=== PATIENT | female | born 1990 | race Caucasian/White ===

== ENCOUNTER 2019-02-04 15:57 | Emergency (ER) | payer OTHER ==
[2019-02-04] MEDS: ONDANSETRON 4 MG INJ IV (18:15)
[2019-02-04] MEDS: morphine 4 MG/ML VIAL IV (18:15)
[2019-02-04] MEDS: SOD CHLORIDE 0.9% 1,000 ML IV (18:15)
[2019-02-04 18:37] LABS: ADD MAN DIFF? NO
[2019-02-04 18:49] LABS: ADD UMIC YES; UR ASCORBIC ACID NEGATIVE (NEGATIVE); UR BILIRUBIN (Dip) NEGATIVE (NEGATIVE); UR BLOOD (Dip) 3+ mg/dL (NEGATIVE); UR CLARITY CLEAR (CLEAR); UR COLOR COLORLESS (YELLOW); UR GLUCOSE (Dip) NEGATIVE (NEGATIVE); UR KETONES (Dip) NEGATIVE (NEGATIVE); UR LEUKOCYTE ESTERASE (Dip) NEGATIVE Leu/ul (NEGATIVE); UR NITRITE (Dip) NEGATIVE (NEGATIVE); UR RBC 0 /HPF (0-5); UR SPECIFIC GRAVITY (Dip) 1.003 (1.003-1.030); UR SQUAMOUS EPITHELIAL CELL FEW /HPF (FEW); UR TOTAL PROTEIN (Dip) NEGATIVE (NEGATIVE); UR UROBILINOGEN (Dip) NEGATIVE (NEGATIVE); UR WBC 2 /HPF (0-5)
[2019-02-04 18:51] LABS: BASOPHIL # 0.1 10^3/ul (0.0-0.1); BASOPHILS % 0.4 % (0.0-2.0); EOSINOPHILS # 0.1 10^3/ul (0.0-0.5); EOSINOPHILS % 0.4 % (0.0-7.0); HEMATOCRIT 42.7 % (37.0-47.0); HEMOGLOBIN 14.3 g/dl (12.0-16.0); LYMPHOCYTES # 3.1 10^3/ul (0.8-2.9); LYMPHOCYTES % 20.9 % (15.0-51.0); MEAN CORPUSCULAR HEMOGLOBIN 27.7 pg (29.0-33.0); MEAN CORPUSCULAR HGB CONC 33.5 g/dl (32.0-37.0); MEAN CORPUSCULAR VOLUME 82.6 fl (82.0-101.0); MEAN PLATELET VOLUME 10.9 fl (7.4-10.4); MONOCYTE # 1.3 10^3/ul (0.3-0.9); MONOCYTES % 8.8 % (0.0-11.0); NEUTROPHIL # 10.1 10^3/ul (1.6-7.5); NEUTROPHILS % 69.2 % (39.0-77.0); PLATELET COUNT 333 10^3/UL (140-415); RED BLOOD COUNT 5.17 10^6/ul (4.20-5.40)
[2019-02-04 18:51] LABS: WHITE BLOOD COUNT 14.6 10^3/ul (4.8-10.8)
[2019-02-04 18:57] LABS: ALANINE AMINOTRANSFERASE 29 IU/L (13-69); ALBUMIN 4.4 g/dl (3.3-4.9); ALBUMIN/GLOBULIN RATIO 1.04; ALKALINE PHOSPHATASE 116 IU/L (42-121); ANION GAP 9 (5-13); ASPARTATE AMINO TRANSFERASE 30 IU/L (15-46); BILIRUBIN,INDIRECT 0.5 mg/dl (0-1.1); BILIRUBIN,TOTAL 0.5 mg/dl (0.2-1.3); BLOOD UREA NITROGEN 12 mg/dl (7-20); CALCIUM 9.3 mg/dl (8.4-10.2); CARBON DIOXIDE 28 mmol/L (21-31); CHLORIDE 102 mmol/L (97-110); CREATININE 0.86 mg/dl (0.44-1.00); Estimated GFR > 60 mL/min (>60); GLUCOSE 101 mg/dl (70-220); LIPASE 113 U/L (23-300); SODIUM 139 mmol/L (135-144); TOTAL PROTEIN 8.6 g/dl (6.1-8.1)
[2019-02-04 19:05] LABS: POTASSIUM 2.6 mmol/L (3.5-5.1)
[2019-02-04] MEDS ORDERED: MAGNESIUM CHLORIDE (SR) 64 MG TAB PO (19:30)
[2019-02-04] MEDS ORDERED: POTASSIUM BICARBONATE 25 MEQ TAB PO (19:30)
[2019-02-04] MEDS: MAGNESIUM SULFATE 2 GM/50 ML 50 ML IVPB (19:39)
[2019-02-04] MEDS: POTASSIUM CHLORIDE (SR) 20 MEQ TAB PO (20:20)
[2019-02-04] MEDS: POTASSIUM CHLORIDE 100 ML IVPB ×2 (20:40→22:29)
[2019-02-05 00:37] LABS: ANION GAP 8 (5-13); BLOOD UREA NITROGEN 8 mg/dl (7-20); CALCIUM 7.1 mg/dl (8.4-10.2); CARBON DIOXIDE 25 mmol/L (21-31); CHLORIDE 107 mmol/L (97-110); CREATININE 0.74 mg/dl (0.44-1.00); Estimated GFR > 60 mL/min (>60); GLUCOSE 174 mg/dl (70-220); POTASSIUM 3.3 mmol/L (3.5-5.1); SODIUM 140 mmol/L (135-144)
[2019-02-05] MEDS: POTASSIUM CHLORIDE (SR) 20 MEQ TAB PO (01:11)
== END 2019-02-05 01:17 | disposition home or self-care (01) ==
LOC: E/R 02-05 01:17 → FTE 15:57
DX: E87.6 Hypokalemia (principal)
CPT/HCPCS: 36415; 76705; 80048; 80053; 81001; 81025; 83690; 84702; 85025; 93005; 96374; 96375; 96376; 99285-25